=== PATIENT | female | born 1995 | race African-American/Black ===

== ENCOUNTER 2018-11-22 10:44 | Emergency (ER) | payer MEDICAID ==
[~2018-11-22] VITALS: Ht 162.6 cm; Wt 82.0 kg
[2018-11-22] MEDS ORDERED: SODIUM CHLORIDE 0.9% 1,000 ML IV ONE (12:01)
[2018-11-22] MEDS ORDERED: KETOROLAC 30MG/ML VIAL IV ONE (12:15)
[2018-11-22 12:28] LABS: CLARITY URINE CLEAR (CLEAR); COLOR URINE YELLOW (YELLOW); KETONES URINE NEGATIVE (NEGATIVE); LEUKOCYTE ESTERASE URINE NEGATIVE (NEGATIVE); NITRITE URINE NEGATIVE (NEGATIVE); OCCULT BLOOD URINE 3+ (NEGATIVE); PH URINE 6.5 (4.5-8.0); PROTEIN URINE NEGATIVE (NEGATIVE); UROBILINOGEN URINE 0.2 E.U./dL (0.2-1.0)
[2018-11-22 12:41] LABS: BASOPHILS % 0.4 % (0.0-2.0); EOSINOPHILS % 1.6 % (0.0-5.0); HEMATOCRIT. 35.7 % (36.0-48.0); HEMOGLOBIN. 11.9 g/dL (12.0-16.0); LYMPHOCYTES % 24.7 % (20.0-50.0); MEAN CORPUSCULAR HEMOGLOBIN 29.8 pg (28.0-32.0); MEAN CORPUSCULAR VOLUME 89.5 fL (81.0-99.0); MEAN PLATELET VOLUME 7.8 fl (7.4-10.4); MONOCYTES % 5.7 % (2.0-8.0); NEUTROPHILS % 67.6 % (40.0-76.0); PLATELET 275 x1000/uL (130-400); RED BLOOD CELL COUNT 3.99 mill/uL (4.2-5.4); RED CELL DISTRIBUTION WIDTH 13.4 % (11.6-14.6)
[2018-11-22 12:46] LABS: CHLORIDE 105 mEq/L (98-107)
[2018-11-22 12:59] LABS: HCG SCREEN NEGATIVE
[2018-11-22] MEDS ORDERED: ACETAMINOPHEN 325MG TABLET PO ONE (15:00)
[2018-11-22 17:38] VITALS: BP 109/51
== END 2018-11-22 17:44 | disposition home or self-care (01) ==
LOC: ER 10:44
DX: N83.202 Unspecified ovarian cyst, left side (principal); N80.9 Endometriosis, unspecified; D64.9 Anemia, unspecified
CPT/HCPCS: 36415; 76830; 76856; 80053; 81003; 84703; 85025; 86850; 86900; 86901; 96374; 99284; J1885; J7030

== ENCOUNTER 2019-03-16 00:41 | Emergency (ER) | payer MEDICAID ==
[~2019-03-16] VITALS: Ht 162.6 cm; Wt 82.0 kg
[2019-03-16 01:00] VITALS: BP 115/49
[2019-03-16] MEDS ORDERED: KETOROLAC 30MG/ML VIAL IV ONE (01:45)
[2019-03-16] MEDS ORDERED: SODIUM CHLORIDE 0.9% 1,000 ML IV ONE (01:45)
[2019-03-16] MEDS ORDERED: METOCLOPRAMIDE HCL 10MG/2ML VIAL IV ONE (01:45)
[2019-03-16 03:43] LABS: CLARITY URINE CLOUDY (CLEAR); COLOR URINE YELLOW (YELLOW); KETONES URINE NEGATIVE (NEGATIVE); LEUKOCYTE ESTERASE URINE 2+ (NEGATIVE); NITRITE URINE NEGATIVE (NEGATIVE); OCCULT BLOOD URINE NEGATIVE (NEGATIVE); PROTEIN URINE NEGATIVE (NEGATIVE); SPECIFIC GRAVITY URINE 1.025 (1.005-1.030); UROBILINOGEN URINE 0.2 E.U./dL (0.2-1.0)
[2019-03-16] MEDS ORDERED: CEPHALEXIN 250MG CAPSULE PO ONE (04:15)
[2019-03-16] MEDS ORDERED: HYDROCODONE/ACETAMINOPHEN 5/325MG TABLET PO ONE (04:15)
== END 2019-03-16 04:50 | disposition home or self-care (01) ==
LOC: ER 00:41
DX: N39.0 Urinary tract infection, site not specified (principal); J06.9 Acute upper respiratory infection, unspecified; Z98.890 Other specified postprocedural states
CPT/HCPCS: 81003; 81025; 96374; 96375; 99283; J1885; J2765; J7030; Z7610

== ENCOUNTER 2019-05-26 00:28 | Emergency (ER) | payer MEDICAID ==
[~2019-05-26] VITALS: Ht 162.6 cm; Wt 77.0 kg
[2019-05-26] MEDS ORDERED: SUMATRIPTAN SUCCINATE 6MG/0.5ML VIAL SUBCUT ONE (02:45)
[2019-05-26] MEDS ORDERED: ONDANSETRON 4MG ODT PO ONE (03:30)
[2019-05-26 04:09] VITALS: BP 118/70
== END 2019-05-26 04:20 | disposition home or self-care (01) ==
LOC: ER 00:28
DX: R51 Headache (principal); M79.641 Pain in right hand
CPT/HCPCS: 96372; 99283; J3030; Q0162

== ENCOUNTER 2022-10-25 06:10 | Emergency (ER) | payer MEDICAID, OTHER ==
[2022-10-25 06:13] VITALS: PULSE 122
== END 2022-10-25 10:13 | disposition left against medical advice (07) ==
LOC: ER 06:10
DX: Z53.21 Procedure and treatment not carried out due to patient leaving prior to being seen by health care provider (principal); I49.9 Cardiac arrhythmia, unspecified
CPT/HCPCS: 93005; 99281